=== PATIENT | female | born 1975 | race Caucasian/White ===

== ENCOUNTER 2020-03-22 02:46 | Outpatient (CLI) | payer OTHER, SELFPAY ==
[2020-03-22 18:40] LABS: SARS-CoV-2 RNA PCR Negative
== END 2020-03-22 02:47 | disposition home or self-care (01) ==
LOC: ANHCOVIDDT 02:48
PROVIDERS: PCP Nurse Practitioner; Visit Provider Surgery Plastic and Reconstructive Surgery
DX: Z01.812 Encounter for preprocedural laboratory examination (principal); Z11.59 Encounter for screening for other viral diseases
CPT/HCPCS: 87635; C9803; U0003

== ENCOUNTER 2020-03-24 00:57 | Day surgery (SDC) | payer OTHER, SELFPAY ==
[2020-03-13 12:41] VITALS: BMI 35.6
[2020-03-24] VITALS (14 sets, daily range): BP systolic 124–159; BP diastolic 68–97; PULSE 62–99; RESP 10–18; TEMP 36.1–36.9; O2SAT 94–100
[2020-03-24] MEDS: LACTATED RINGERS 1,000 ML 30 ML IV CONT ×2 (09:48→13:37)
[2020-03-24 09:56] LABS: Urine Cotinine NEGATIVE
--- NOTE | 2020-03-24 11:14 | SUR.PREOP ---
Discussed delay with patient. Voices understanding and disappointment.
--- NOTE | 2020-03-24 11:29 | P.PNAN_ITS ---
Anes - Initial Pre Proc Eval Procedure: Operation Date: 03/24/20 11:00 Proposed Procedures p Panniculectomy - Hao Quiroz MD Date/Time: 03/24/20 11:29 Surgeon: Hao Quiroz MD Pre Op Diagnosis: Panniculitis Patient Data Age: 44 Gender: F Height: 5 ft 4 in Weight: 96.5 kg Last Vital Signs Temp 36.9 C 03/24/20 10:06 Pulse 69 03/24/20 10:06 Resp 16 03/24/20 10:06 BP 124/78 03/24/20 10:06 Pulse Ox 100 03/24/20 10:06 Allergies Allergy/AdvReac Type Severity Reaction Status Date / Time morphine Allergy Unknown Anaphylaxis Verified 03/24/20 09: strawberry Allergy Anaphylaxis Verified 03/24/20 09:29 SKIN GLUE Allergy ITCHING, Uncoded 03/24/20 09:29 RASH Home Medications Medication Instructions Recorded Confirmed Type multivitamin 1 tablet PO DAILY 03/13/20 03/24/20 History pantoprazole 40 mg PO DAILY 03/13/20 03/24/20 History docusate sodium 100 mg capsule 100 mg PO BID #14 cap 03/15/20 03/24/20 Rx ondansetron HCl 4 mg tablet 4 mg PO Q6H PRN #30 tablet 03/15/20 03/24/20 Rx hydrocodone 5 mg-acetaminophen 325 1 tablet PO Q6H PRN #15 tablet 03/16/20 03/24/20 Rx mg tablet Laboratory Tests 03/24/20 09:25 Cotinine Negative Patient hx anesthesia problems: none Family hx anesthesia problems: none [facility] Past Medical History Medical History (Updated 03/24/20 @ 11:29 by Justus Leyva MD) Obesity Surgical History Surgical History History of bilateral breast reduction surgery History of cholecystectomy History of gastric bypass Social History Social History Smoking status: Never smoker Alcohol intake: current Drinks per week: 1 Substance use: never Spiritual care concerns: No Anes - Eval Final PreProcedure Day of Procedure 03/24/20 11:29 Patient weight: obese Heart: regular rate and rhythm Lungs: clear to auscultation Airway: Mallampati scale class II Neurological: alert and oriented Last oral intake: >/= 8 hours ASA classification: III Emergent: no Anesthetic plan: proceed Anesthesia type and monitoring: general ETT and standard monitoring Informed Consent: The patient's anesthetic plan and its attendant risks and benefits were discussed with the patient/family/POA. Questions were solicited and answers provided to the satisfaction of the patient/family/POA.
--- NOTE | 2020-03-24 11:38 | WPDHPUPDATE1 ---
History and Physical Update Update Date/Time: 03/24/20 11:38 History and Physical has been reviewed, including an updated exam of the patient. There are NO changes in the patient's condition. Risks, benefits, and alternatives have been discussed and questions answered. Patient agrees to proceed with procedure.
--- NOTE | 2020-03-24 11:57 | PM.PROC ---
Procedure Note - Detailed Date of procedure: 03/24/20 Pre-op diagnosis: Panniculitis Post-op diagnosis: same Procedure performed: Panniculectomy Description of procedure: Patient was marked in the preoperative holding area with her verification. Risks, benefits, alternatives were discussed in extensive detail. I want her to be very realistic about the risks involved as well as expectations. She says she does not mind if she loses the umbilicus. she understands this is a functional not a cosmetic procedure. All questions answered to her satisfaction today and consent obtained. I did complete a thorough examination of the abdomen while standing. Patient was taken to the operating room placed supine on the operating room table. Anesthesia was provided by anesthesiology and prepped and draped in a standard sterile fashion. Surgical time-out was taken. Did a thorough abdominal examination and stab incision was made. I tumesced with a tumescent solution. Ten blade used to make the lower incision. This was continued down to the fascia. I then resected this as a V type resection doing no undermining except small amount centrally where I floated the umbilicus to provide for good tension free skin closure / removal of entire panniculus. No evidence of deep structure injury. No evidence of hernia. I then began closing using 2-0 PDS in multiple layers to obliterate all space. Also placed 19 Alexis drains bilaterally which were sutured into place with 3-0 nylon. I then closed using a 3-0 strata fix and tj. Dressings were placed. For [place], taken to the PACU without difficulty. All instrument sponge counts were correct at the end of the case. Anesthesia: GLMA Surgeon: Hao Quiroz MD Estimated blood loss (mL): 75 Drains: Yes (Bilateral alexis) Packing: No Pathology: none sent Complications: No immediate complications Condition: stable Disposition: PACU Findings: 2325 grams removed. 19 alexis bilateral drains Small abscess in mons identified after starting. Did not drain intraop. Minimal erythema. Size 0.2 x 0.2cm.
[2020-03-24] MEDS: ceFAZolin 2 GM/D5W 50 ML 2 GM/50 ML BAG IVPB (12:00)
[2020-03-24] MEDS: fentaNYL CITRATE INJ (*CRX) 100 MCG/2 ML VIAL 25 MCG IV PUSH ×2 (14:05→14:12)
[2020-03-24] MEDS: LACTATED RINGERS 1,000 ML 125 ML IV CONT (16:29)
[2020-03-24] MEDS: HYDROcodone/acetaminophen (*CRX) 5-325 MG TABLET 1 TAB PO ×2 (16:34→22:13)
[2020-03-24] MEDS: DOCUSATE SODIUM 100 MG CAPSULE PO (20:48)
[2020-03-25 02:00] VITALS: BP 104/61; PULSE 62; RESP 16; TEMP 37; O2SAT 98
[2020-03-25 05:58] VITALS: BP 106/71; PULSE 67; RESP 18; TEMP 37.1; O2SAT 99
--- NOTE | 2020-03-25 07:40 | WPDPN ---
Progress Note: A&P Assessment and Plan (1) Panniculitis: Code(s): M79.3 - Panniculitis, unspecified Status: Acute Assessment and Plan: Doing very well. D/C Home. F/U 2 weeks. Today we had a lengthy discussion about the care. What to monitor for. Activity limitations. Keep us updated with drain outputs. This was a lengthy open ended conversation making sure I answered all of her questions to her satisfaction. She will call with any questions or concerns. (2) History of bilateral breast reduction surgery: Code(s): Z98.890 - Other specified postprocedural states Status: Acute (3) History of cholecystectomy: Code(s): Z90.49 - Acquired absence of other specified parts of digestive tract Status: Acute (4) History of gastric bypass: Code(s): Z98.84 - Bariatric surgery status Status: Acute (5) Piercing: Code(s): T14.8XXA - Other injury of unspecified body region, initial encounter Status: Acute Review of Systems Review of Systems: All systems reviewed & are unremarkable except as noted in HPI and below Exam Const: General: comfortable, no acute distress, alert and awake; No acute distress Orientation/consciousness: oriented to person HENMT: Head: normal to inspection Ears: external ears normal General nose exam: Normal external nose present Face and sinus: normal facial exam Eyes: General: appearance normal, both eyes and all related structures Periorbital: periorbital findings normal Eyelids: eyelids normal Conjunctivae: conjunctivae normal Neck: Neck: normal visual inspection Chest: Chest palpation & inspection: normal inspection of the chest Resp: Effort & Inspection: normal respiratory effort and able to speak in complete sentences GI: Inspection: normal to inspection Skin: Other: Abdomen is healing well. No signs of infection. No hematoma. NO seroma. Drains are becoming serosangenous. No calf tenderness. Neuro: General: oriented to person Psych: Appearance: grossly normal Mental Status: mental status grossly normal Objective Data Vital Signs Vital Signs: Vital Signs - 24 hr 03/24/20 10:06 03/24/20 13:37 03/24/20 13:50 Temperature 36.9 C 36.2 C L Pulse Rate 69 99 80 Respiratory Rate 16 13 10 L Blood Pressure 124/78 157/95 H 159/97 H Pulse Oximetry 100 100 100 03/24/20 14:00 03/24/20 14:15 03/24/20 14:30 Temperature Pulse Rate 79 87 85 Respiratory Rate 12 12 18 Blood Pressure 149/84 H 136/88 139/83 Pulse Oximetry 96 96 94 03/24/20 14:45 03/24/20 15:00 03/24/20 15:10 Temperature Pulse Rate 83 86 87 Respiratory Rate 12 14 14 Blood Pressure 143/74 H 139/70 142/84 H Pulse Oximetry 97 95 99 03/24/20 15:30 03/24/20 15:45 03/24/20 16:15 Temperature 36.8 C 36.6 C 36.5 C Pulse Rate 82 86 71 Respiratory Rate 16 16 16 Blood Pressure 137/74 124/84 124/74 Pulse Oximetry 97 100 99 03/24/20 17:15 03/24/20 22:00 03/25/20 02:00 Temperature 36.1 C L 36.1 C L 37.0 C Pulse Rate 65 62 62 Respiratory Rate 16 18 16 Blood Pressure 133/70 129/68 104/61 Pulse Oximetry 98 99 98 03/25/20 05:58 Temperature 37.1 C Pulse Rate 67 Respiratory Rate 18 Blood Pressure 106/71 Pulse Oximetry 99 Intake/Output Intake/Output: Intake & Output 03/22/20 03/23/20 03/24/20 03/25/20 23:59 23:59 23:59 23:59 Intake Total 970 250 Output Total 268 1165 Balance 702 -915 Meds/Results Medications: Active Medications Generic Name Dose Route Start Last Admin Trade Name Freq PRN Reason Stop Dose Admin Hydrocodone Bitart/Acetaminophen 1 tab 03/24/20 15:14 03/24/20 22:13 [place] 5-325 Mg PO 1 tab Q6H PRN Administration Pain Rated 4-6 Docusate Sodium 100 mg 03/24/20 21:00 03/24/20 20:48 Colace Capsule PO 100 mg Q12HR TARSHA Administration Enoxaparin Sodium 40 mg 03/25/20 09:00 Lovenox SUB-Q DAILY TARSHA Ondansetron HCl 4 mg 03/24/20 13:28 Zofran Inj IV PUSH Q6H
--- NOTE | 2020-03-25 07:43 | P.DS_ITS ---
DS: Admitting Diagnosis Admitting Diagnosis Admitting Diagnosis: Panniculitis DS: Discharge Diagnosis Discharge Diagnosis (1) Panniculitis: Code(s): M79.3 - Panniculitis, unspecified Status: Acute Assessment and Plan: s/p panniculectomy DS: Summary Time Spent with Patient Time attestation: Total time spent providing and/or coordinating discharge services: Exam Const: General: comfortable, no acute distress, alert and awake; No acute distress Orientation/consciousness: oriented to person HENMT: Head: normal to inspection Ears: external ears normal General nose exam: Normal external nose present Face and sinus: normal facial exam Eyes: General: appearance normal, both eyes and all related structures Periorbital: periorbital findings normal Eyelids: eyelids normal Conjunctivae: conjunctivae normal Neck: Neck: normal visual inspection Chest: Chest palpation & inspection: normal inspection of the chest Resp: Effort & Inspection: normal respiratory effort and able to speak in complete sentences GI: Inspection: normal to inspection Skin: Other: Abdomen is healing well. No signs of infection. No hematoma. NO seroma. Drains are becoming serosangenous. No calf tenderness. Neuro: General: oriented to person Psych: Appearance: grossly normal Mental Status: mental status grossly normal DS: Data Data Completed and Pending Labs on day of discharge: Labs from last 24 hours 03/24/ 09:25 Cotinine Negative Discharge Plan Discharge Patient Disposition: Home, Self-Care Discharge Instructions: POST OPERATIVE DISCHARGE INSTRUCTIONS FOR Panniculectomy HAO QUIROZ M.D. [facility] [address] [place] [address] * No driving for 24 hours after anesthesia and while you are taking pain medication. * Take all prescribed medication as directed * Diet as tolerated. * No lifting or activity that raises blood pressure for 48 hours. * Regular walking / ambulation. * No showering until directed to. Once you shower do not take pain medication before showering as the combination of medication and heat may cause you to feel dizzy or pass out. * No pools or tubs for 2 weeks. * Call with any questions or concerns. * Dressing Care: Wash area with soap and water. If you have any questions or concerns, please call the office . If it is after hours you will be directed to the business analysis professional exchange. Shortness of breath, chest pain, or other medical emergency dial 911 / proceed to the Emergency Room. Patient Instructions: [facility] ([facility]) Stand Alone Forms: General Discharge Instructions Follow-up/Referrals: Hao Quiroz MD [Physician] - 2 Weeks Discharge Medications: Continued docusate sodium [Colace] 100 mg capsule 100 mg PO BID Qty: 14 RF: 0 ondansetron HCl [Zofran] 4 mg tablet 4 mg PO Q6H PRN (Reason: nausea and vomiting) Qty: 30 RF: 0 hydrocodone-acetaminophen [[place]] 5-325 mg tablet 1 tablet PO Q6H PRN (Reason: pain) Qty: 15 RF: 0 multivitamin Tablet 1 tablet PO DAILY RF: 0 pantoprazole 40 mg tablet,delayed release (DR/EC) 40 mg P
[2020-03-25] MEDS: HYDROcodone/acetaminophen (*CRX) 5-325 MG TABLET 1 TAB PO (08:13)
[2020-03-25] MEDS: DOCUSATE SODIUM 100 MG CAPSULE PO (08:13)
[2020-03-25] MEDS: PANTOPRAZOLE 40 MG TABLET PO (08:13)
== END 2020-03-25 09:46 | disposition home or self-care (01) ==
LOC: ANHSURGERY 08:57 → ANH2MED 15:18
PROVIDERS: PCP Nurse Practitioner; Visit Provider Surgery Plastic and Reconstructive Surgery
PROC: 0JB80ZZ Excision of Abdomen Subcutaneous Tissue and Fascia, Open Approach (ICD-10-PCS; CPT 15830; principal; 2020-03-24 11:00)
DX: M79.3 Panniculitis, unspecified (principal); E66.9 Obesity, unspecified; Z68.36 Body mass index [BMI] 36.0-36.9, adult; Z98.84 Bariatric surgery status; Z79.899 Other long term (current) drug therapy; Z23 Encounter for immunization
CPT/HCPCS: 15830; 80307; 87635; 90471; 90686; A9270; C9803; G0008; J0131; J0171; J0690; J1100; J1170; J2250; J2405; J2704; J3010; J7120; U0003

== ENCOUNTER 2023-09-30 07:54 | Outpatient (CLI) | payer BC, SELFPAY ==
[2023-09-30 09:02] LABS: Basophils Percent Auto 0.4 % (0.2-1.2); Eosinophils Absolute Auto 0.2 K/mm3 (0-0.3); Eosinophils Percent Auto 1.9 % (0-4.4); Hematocrit 35.9 % (37.0-47.0); Hemoglobin 11.3 g/dL (12.0-15.0); Immature Granulocyte Absolute 0.02 K/mm3 (0.00-0.031); Immature Granulocyte Percent A 0.3 % (0-0.5); Lymphocytes Absolute Auto 2.45 K/mm3 (0.9-3.2); Lymphocytes Percent Auto 30.9 % (18.3-44.2); Mean Corpuscular HGB Conc 31.5 g/dl (32-36); Mean Corpuscular Hemoglobin 26.5 pg (26-34); Mean Corpuscular Volume 84.3 fl (80-100); Mean Platelet Volume 9.9 fl (7.4-10.4); Monocytes Absolute Auto 0.4 K/mm3 (0.1-0.6); Monocytes Percent Auto 5.4 % (2.6-8.5); Neutrophils Absolute Auto 4.9 K/mm3 (1.3-6.7); Neutrophils Percent Auto 61.1 % (45.5-73.1); Platelet Count Result 261 k/mm3 (150-375); Red Blood Count 4.26 M/mm3 (4.2-5.4); Red Cell Distribution Width 14.7 % (11.5-14.5); White Blood Count 7.9 K/mm3 (4.5-10.0)
[2023-09-30 09:17] LABS: Alanine Aminotransferase 19 U/L (6-35); Albumin Level 3.8 g/dL (3.5-5.1); Alkaline Phosphatase 85 U/L (38-126); Anion Gap 2 mmol/L (4-12); Aspartate Amino Transferase 27 U/L (14-36); Bilirubin,Total 0.5 mg/dL (0.2-1.3); Blood Urea Nitrogen 14 mg/dL (7-17); Calcium 8.8 mg/dL (8.4-10.2); Carbon Dioxide 28 mmol/L (22-30); Chloride 108 mmol/L (98-107); Cholesterol 204 mg/dL (0-200); Estimated Glomerular Filt Rate > 60; Glucose 94 mg/dL (65-110); HDL Direct 78 mg/dL; Potassium 4.7 mmol/L (3.4-5.0); Sodium 138 mmol/L (137-145); Triglycerides 97 mg/dL (<150)
[2023-09-30 09:21] LABS: Rheumatoid Factor < 12.0 IU/ML (<12)
[2023-09-30 09:27] LABS: LDL Cholesterol Direct 110 mg/dL
[2023-09-30 09:32] LABS: Hemoglobin A1C 5.2 % (<5.7)
[2023-09-30 09:37] LABS: Vitamin D 25 Hydroxy 30.7 ng/mL
[2023-09-30 11:03] LABS: Erythrocyte Sedimentation Rate 56 mm/hr (0-20)
== END 2023-09-30 07:55 | disposition home or self-care (01) ==
PROVIDERS: PCP Nurse Practitioner; Visit Provider Nurse Practitioner
DX: Z00.00 Encounter for general adult medical examination without abnormal findings (principal); E78.00 Pure hypercholesterolemia, unspecified; M25.50 Pain in unspecified joint
CPT/HCPCS: 36415; 80053; 80061; 82306; 83036; 84443; 85025; 85652; 86038; 86430

== ENCOUNTER 2023-10-10 13:13 | Outpatient (CLI) | payer BC, SELFPAY ==
[2023-10-10 15:28] LABS: Iron 48 ug/dL (37-170)
[2023-10-10 15:38] LABS: Percent Iron Saturation 10 % (20-50)
[2023-10-10 16:04] LABS: Ferritin 5.73 ng/mL (6.24-137)
== END 2023-10-10 13:14 | disposition home or self-care (01) ==
LOC: ANHLAB 13:16
PROVIDERS: PCP Nurse Practitioner; Visit Provider Nurse Practitioner
DX: D64.9 Anemia, unspecified (principal)
CPT/HCPCS: 36415; 82607; 82728; 83540; 83550

== ENCOUNTER 2023-10-20 15:51 | Outpatient (NON) | payer BC, SELFPAY ==
[2023-10-20 21:41] LABS: IFOB Positive Control Positive; Immunochemical Fecal Occult Bl Negative (N)
== END 2023-10-20 15:52 | disposition home or self-care (01) ==
PROVIDERS: PCP Nurse Practitioner; Visit Provider Nurse Practitioner
DX: D64.9 Anemia, unspecified (principal)
CPT/HCPCS: 82274